=== PATIENT | male | born 1995 | race African-American/Black ===

== ENCOUNTER 2020-03-31 15:58 | Emergency (ER) | payer OTHER ==
[~2020-03-31] VITALS: Ht 188 cm; Wt 77.0 kg
[2020-03-31 16:15] VITALS: BP 141/81
== END 2020-03-31 20:00 | disposition home or self-care (01) ==
LOC: ER 15:58
DX: S64.8X1A Injury of other nerves at wrist and hand level of right arm, initial encounter (principal); G56.81 Other specified mononeuropathies of right upper limb; F11.10 Opioid abuse, uncomplicated; Z87.828 Personal history of other (healed) physical injury and trauma; X58.XXXA Exposure to other specified factors, initial encounter; Y93.89 Activity, other specified; Y92.018 Other place in single-family (private) house as the place of occurrence of the external cause
CPT/HCPCS: 29125; 72040; 99283